=== PATIENT | male | born 1940 | race Caucasian/White ===

== ENCOUNTER 2020-09-10 09:00 | Outpatient (RCR) | payer MEDICARE, OTHER, SELFPAY ==
--- NOTE | 2020-08-30 15:24 | PTOPEVAL ---
Thank you for referring Monty Yarbrough Jalynemanuel to [facility].? The patient is scheduled to be seen for therapy? 2 x/week for 6 weeks. Please review, sign, date and return this plan of care SAMANTHA. I agree with and certify that the following plan of care is medically necessary. Referring Physician Date Attending Provider: Pete Suarez, MD Diagnosis left ant distal rib and left axillary shoulder pain Onset June 24 Subjective Information He reports he often had pain Query Text:As Reported By Patient/ in the rib region, but nothing Family that last. He reports the pain is worse has not let up. Reports increased pain with standing activities. The pain intensity varies during the day. Lifting objects from side and reaching outwards can be pain. Pain Assessment Left Axilla/Axillae Reported Pain Level 0 Pain Description Dull,Sharp,Spasms Greatest Pain Intensity 10 Pain Aggravating Factors Lifting,Other Pain Aggravating Factors Other Pain Aggravating Factors reaching Left Anterior Chest Reported Pain Level 0 Pain Description Sharp Lowest Pain Intensity 0 Greatest Pain Intensity 10 Pain Aggravating Factors Exercise/Activity,Lifting, Other Pain Aggravating Factors Other Pain Aggravating Factors reaching Cervical and Lumbar ROM Lumbar ROM Lumbar Comments 50% of trunk motion noted Upper Extremity Range of Motion General Upper Extremity Range of Motion Reason Not Measured WFL/Left,WFL/Right Upper Extremity Muscle Strength Testing General Upper Extremity Strength Reason Not Measured WFL/Left,WFL/Right Muscle Length Testing Muscle Length Testing Latissmus Dorsi Muscle Length (R) Moderate Tightness,(L) Moderate Tightness Pectoralis Major Muscle Length (R) Moderate Tightness,(L) Moderate Tightness Pectoralis Minor Muscle Length (R) Severe Tightness,(L) Severe Tightness Posture Standing Position Head/C-Spine Posture Side Bent Right,Forward Head Thoracic Spine Posture Increased Kyphosis Shoulder Posture (L) Rounded,(R) Rounded,(L) Forward,(R) Forward Scapula Posture (L) Protracted,(R) Protracted, (L) Depressed,(R) Depressed,(L ) Winged,(R) Winged,(L) Tipped ,(R) Tipped Arm Posture (L) Internally Rotated,(R)
--- NOTE | 2020-09-13 10:23 | PCPTNOTE ---
Patient called & cancelled today's and the rest of his scheduled appointment this date due to due to not feeling any better, and doesn't feel like therapy is helping.
--- NOTE | 2020-09-18 08:54 | PCPTNOTE ---
Admitting Provider: Attending Provider: Pete Suarez, Patient:Monty Sierra Date of :1940 Discharge Note Patient has not returned for any further treatments since 09/10/2020, therefore he will be discharged at this time. Monty called and cancelled his remaining therapy visits due to did not feel therapy was helping his symptoms. Patient?s initial visit was on 08/30/2020 14:00 and he had a total of 3 visits. The goals have been not met due to limited therapy visits or performance of a home exercise program. No change in objective measures. Thank you for referring this patient to [facility]. Please review, sign, date and return this discharge summary SAMANTHA. I have been updated about the patient's current status and I agree with discharge from the above service at this time. Referring Physician Date
== END 2020-09-18 11:01 | disposition home or self-care (01) ==
LOC: ANHPT 09:00
PROVIDERS: PCP Internal Medicine; Visit Provider Internal Medicine
DX: M25.512 Pain in left shoulder (principal); R07.89 Other chest pain
CPT/HCPCS: 97110; 97140; 97161